=== PATIENT | female | born 1985 | race Two or more races ===

== ENCOUNTER 2020-09-24 16:53 | Emergency (ER) | payer MEDICAID, SELFPAY ==
[2020-09-24 17:26] VITALS: BP 118/76; PULSE 82; RESP 18; TEMP 36.3; O2SAT 98; BMI 34.7
[2020-09-24 20:00] VITALS: BP 102/57; PULSE 67; RESP 18; TEMP 36.6; O2SAT 99
--- NOTE | 2020-09-24 20:08 | ED.BACK ---
HPI - Back Pain/Injury General Chief Complaint: Abdominal Pain Stated Complaint: back pain Time Seen by Provider: 09/24/20 19:56 Source: patient Mode of arrival: ambulatory Limitations: no limitations History of Present Illness HPI Narrative: Patient with history of chronic low back pain noticed increased pain in the lower back for last 1 week no injury or trauma no urinary complaints no family history of kidney stones no fever or chills no nausea vomiting no bowel or bladder problems no focal weakness in the leg Related Data Previous Rx's Medication Instructions Recorded cyclobenzaprine 10 mg PO Q8H #20 tab 09/24/20 diclofenac sodium 50 mg PO BID #20 tab 09/24/20 Allergies Allergy/AdvReac Type Severity Reaction Status Date / Time No Known Allergies Allergy Verified 09/24/20 19:56 Review of Systems Review of Systems: Yes all other systems are reviewed and are negative FOR[facility]LY [facility] Social History Social History Advance Directives: No Advance Directives Information Provided: No Patient : No Physical Exam Vital Signs: Vital Signs: Last Vital Signs Temp 97.8 F 09/24/20 20:00 Pulse 67 09/24/20 20:00 Resp 18 09/24/20 20:00 BP 102/57 L 09/24/20 20:00 Pulse Ox 99 09/24/20 20:00 Body Mass Index 34.7 Const: General: healthy appearing and comfortable Orientation/consciousness: patient oriented x3 Eyes: General: appearance normal, both eyes and all related structures Resp: Effort & Inspection: normal respiratory effort Auscultation: clear to auscultation bilaterally Cardio: Palpation: normal PMI Rate: regular rate Rhythm: regular rhythm Heart sounds: S1 normal heart sound present and S2 normal heart sound present Peripheral pulses: Peripheral pulses 2+ throughout GI: Inspection: Yes normal to inspection Palpation (GI): Soft to palpation Auscultation: normal bowel sounds : General: Yes CVA tenderness (Left side) Back/Spine/Pelvis: Back: CVA tenderness (Left side) Thoracic/Lumbar Spine: thoracic and lumbar spine normal to inspection, straight leg raise negative bilaterally and paraspinal muscle tenderness (Left paraspinal) Neuro: General: patient oriented x3, moves all extremities and no focal motor deficits Extrem: General: Yes full ROM MDM - Back Pain/Injury Lab Data Labs: Lab Results 09/24/20 Range/Units 20:33 Urine Color YELLOW Urine Appearance CLEAR Urine pH 6.0 (5.0-8.0) Ur Specific [place] 1.025 (1.005-1.025) Urine Protein NEG (NEG-TRACE) MG/DL Urine Glucose (UA) NEG (NEG) MG/DL Urine Ketones NEG (NEG) MG/DL Urine Blood NEG (NEG) Urine Nitrite NEG (NEG) Ur Leukocyte Esterase NEG (NEG) Discharge Plan Discharge Clinical Impression: Strain of lumbar region Patient Disposition: Home, Self-Care Instructions: Back Pain (ED) Additional Instructions: Rest at home take pain Medication muscle relaxant as prescribed follow with PCP if not better Prescriptions: New cyclobenzaprine 10 mg tablet 10 mg PO Q8H Qty: 20 RF: 0 diclofenac sodium 50 mg tablet,delayed release (DR/EC) 50 mg PO BID Qty: 20 RF: 0 Interventions: ED Discharge Assessment Last Done: 09/24/20 21:54 Discharge Date/Time: 09/24/20 21:55
[2020-09-24 20:45] LABS: Glucose Urine UA NEG (NEG); Leukocyte Esterase Urine NEG (NEG); Nitrite Urine NEG (NEG); Specific Gravity - Urine 1.025 (1.005-1.025); Urine Blood NEG (NEG); Urine Ketones NEG (NEG); Urine Protein NEG (NEG-TRACE)
[2020-09-24 20:49] LABS: Appearance Urine CLEAR; Color Urine YELLOW
[2020-09-24] MEDS: Cyclobenzaprine HCl 10 MG TABLET PO (21:25)
[2020-09-24] MEDS: Lidocaine 4 % Patch ADH..PATCH 1 PATCH TRANSDERMA (21:25)
== END 2020-09-24 21:55 | disposition home or self-care (01) ==
PROVIDERS: Emergency Provider Internal Medicine
DX: S39.012A Strain of muscle, fascia and tendon of lower back, initial encounter (principal); X58.XXXA Exposure to other specified factors, initial encounter; Y93.9 Activity, unspecified; Y92.9 Unspecified place or not applicable; Y99.9 Unspecified external cause status
CPT/HCPCS: 81003; 99284

== ENCOUNTER 2021-01-03 18:54 | Emergency (ER) | payer OTHER, SELFPAY ==
--- NOTE | ~2021-01-03 | XR_ITS ---
EXAMINATION: PORTABLE CHEST 1 VIEW CLINICAL INFORMATION: COUGH . COMPARISON: No recent pertinent prior studies are available for comparison. TECHNIQUE: Portable frontal view of the chest was obtained. FINDINGS: The lungs are well expanded. No focal infiltrate, effusion, edema, or pneumothorax. Cardiac and mediastinal silhouettes are within normal limits for technique. No acute bony abnormality seen. XR/XR chest 1V IMPRESSION: No evidence of acute disease.
[2021-01-03 20:39] LABS: COVID-19 Test Negative (Negative); IDNOW Serial# 08D9AD1C
[2021-01-03 20:46] VITALS: BP 122/75; PULSE 115; RESP 16; TEMP 37.1; O2SAT 98; BMI 36.6
--- NOTE | 2021-01-03 21:30 | ED_ITS ---
HPI - URI/Sore Throat General Chief Complaint: Upper Respiratory Symptoms Stated Complaint: cough tightness in chest Time Seen by Provider: 01/03/21 21:30 Source: patient Mode of arrival: ambulatory Limitations: no limitations History of Present Illness HPI Narrative: patient with itchy eyes and cough that started 4 days ago. patient was concerned because she was wheezing. Her chest feels tight. MD elicited complaint: fever, cough and sore throat Onset (ago): day(s) Consistency: constant Severity: mild Associated symptoms: cough and chest pain Related Data Previous Rx's Medication Instructions Recorded cyclobenzaprine 10 mg tablet 10 mg PO Q8H #20 tab 09/24/20 diclofenac sodium 50 mg 50 mg PO BID #20 tab 09/24/20 tablet,delayed release fluticasone propionate 50 2 spray INTRANASAL DAILY #16 g 01/03/21 mcg/actuation nasal spray,suspension (Flonase Allergy Relief) Allergies Allergy/AdvReac Type Severity Reaction Status Date / Time No Known Allergies Allergy Verified 09/24/20 19:56 Review of Systems Constitutional: Constitutional: Reports no additional constitutional complaints Eyes: Eyes: Reports no additional eye complaints ENT: Denies dizziness Cardiovascular: Cardiovascular: Reports no additional cardiovascular complaints Respiratory: Respiratory: Reports as per HPI Gastrointestinal: Gastrointestinal: Reports no additional gastrointestinal complaints Genitourinary: Genitourinary: Reports no additional female genitourinary complaints Musculoskeletal: Musculoskeletal: Reports no additional musculoskeletal complaints Integumentary/Breasts: Skin/Breast: Denies rash Neurologic: Reports system reviewed and no additional complaints, except as documented, Denies dizziness and Denies Sensory deficit (Neuro) Psychiatric: Psychiatric: Denies anxiety FORMERLY [facility], [facility] Social History Social History Advance Directives: No Patient : No Physical Exam Vital Signs: Vital Signs: Last Vital Signs Temp 98.7 F 01/03/21 20:46 Pulse 115 H 01/03/21 20:46 Resp 16 01/03/21 20:46 BP 122/75 01/03/21 20:46 Pulse Ox 98 01/03/21 20:46 Body Mass Index 36.6 Const: General: healthy appearing Nutritional Appearance: average body habitus Orientation/consciousness: oriented to person and patient oriented x3 Limitations: no limitations HENMT: Head: Yes normal to inspection Ears: external ears normal General nose exam: Normal external nose present Mouth: Normal oral and palatal mucosa present and oropharynx normal Throat: Yes posterior oropharynx normal Eyes: General: appearance normal, both eyes and all related structures Neck: Other: supple Neck: Yes normal visual inspection Chest: Chest palpation & inspection: normal inspection of the chest Resp: Auscultation: clear to auscultation bilaterally Cardio: Jugular venous distension: no JVD Rate: regular rate Rhythm: regular rhythm Heart sounds: S1 normal heart sound present and S2 normal heart sound present GI: Inspection: Yes normal to inspection Palpation (GI): Soft to palpation, nontender and No hepatosplenomegaly present Auscultation: normal bowel sounds : General: Yes no CVA tenderness Back/Spine/Pelvis: Back: no CVA tenderness Skin: General skin exam: no rashes or lesions noted Neuro: General: oriented to person and patient oriented x3 Cranial nerves: Yes CN's II-XII intact bilaterally Motor exam (neuro): 5/5 motor strength present throughout Sensory Exam: No Sensory deficit (Neuro) Extrem: General: Yes normal to inspection Psych: Appearance: grossly normal Course Reevaluation(s) Reevaluation #1: Patient with URI, however she and her boyfriend both tested negative for COVID Time: 21:34 MDM - URI/Sore Throat Lab Data Labs: Lab Results 01/03/21 Range/Units 20:16 COVID-19 (ANNEL) Negative (Negative) COVID-19 Clin Com See Note Discharge Plan Discharge Clinical Impression: Upper respiratory infection Qualifiers: URI type: unspecified viral URI Qualified Code(s): J06.9 - Acute upper respiratory infection, unspecified Sinusitis Qualifiers: Sinusitis location: other Chronicity: acute Recurrence: non-recurrent Qualified Code(s): J01.80 - Other acute sinusitis Patient Disposition: Home, Self-Care Instructions: Upper Respiratory Infection (ED), Rhinosinusitis (ED) Prescriptions: New fluticasone propionate [Flonase Allergy Relief] 50 mcg/actuation spray,suspension 2 spray intranasal DAILY Qty: 16 RF: 0 No Action cyclobenzaprine 10 mg tablet 10 mg PO Q8H Qty: 20 RF: 0 diclofenac sodium 50 mg tablet,delayed release (DR/EC) 50 mg PO BID Qty: 20 RF: 0 Referrals: Physician,Unknown [Primary Care Provider] - 5 days
[2021-01-03 21:55] VITALS: BP 132/84; PULSE 78; RESP 18; TEMP 36.9; O2SAT 98
--- NOTE | 2021-01-03 21:57 | PC.NURSE ---
Pt alert and oriented x4, calm and cooperative. Pt educated on dc. No IV in place. Vitals stable. Pt states ready for dc.
== END 2021-01-03 21:57 | disposition home or self-care (01) ==
PROVIDERS: Emergency Provider Emergency Medicine
DX: J06.9 Acute upper respiratory infection, unspecified (principal); J01.80 Other acute sinusitis; R05 Cough; R50.9 Fever, unspecified; Z20.822 Contact with and (suspected) exposure to COVID-19; Z79.899 Other long term (current) drug therapy
CPT/HCPCS: 36415; 71045; 87635; 99283; 99285

== ENCOUNTER 2021-04-18 08:22 | Outpatient (REF) | payer OTHER, SELFPAY ==
[2021-04-18 09:05] LABS: Hematocrit 43.4 % (37.0-47.0); Mean Corpuscular HGB Conc 32.3 g/dl (31.0-35.0); Mean Corpuscular Hemoglobin 28.2 pg (27.0-33.0); Mean Corpuscular Volume 87.3 fL (80.0-98.0); Mean Platelet Volume 10.4 fL (9.4-12.3); Platelet Count 373 X10*3/uL (160-400); Red Blood Count 4.97 X10*6/uL (4.20-5.50); Red Cell Distribution Width 13.8 % (11.0-16.0); White Blood Count 7.1 X10*3/uL (4.8-10.8)
[2021-04-18 09:16] LABS: Estimated Average Glucose 120 mg/dL; Hemoglobin A1C 151.2364 umol/L; Hemoglobin A1c % 5.8 %
[2021-04-18 09:32] LABS: Alanine Aminotransferase 28 U/L (0-31); Albumin Level 4.5 g/dL (3.5-5.0); Alkaline Phosphatase 105 U/L (39-117); Anion Gap 11 (12-20); Aspartate Amino Transferase 17 U/L (5-31); Bilirubin Total 0.3 mg/dL (0.0-1.0); Blood Urea Nitrogen 14 mg/dL (9-16); Calcium 10.1 mg/dL (8.4-10.2); Carbon Dioxide 31 mmol/L (22-29); Chloride 102 mmol/L (96-108); Cholesterol 208 mg/dL; Estimated Glomerular Filt Rate > 60; Glucose Fasting 108 mg/dL (60-99); HDL Cholesterol 54 mg/dL; Iron 68 mcg/dL (30-160); LDL Cholesterol Calculated 140 mg/dl; Percent Iron Saturation 21 % (15-50); Potassium 4.1 mmol/L (3.3-5.1); Sodium 140 mmol/L (135-145); Total Iron Binding Capacity 325 mcg/dL (228-428); Total Protein 7.6 g/dL (6.5-8.0); Triglycerides 71 mg/dL; Unsaturated Iron Binding 257 ug/dL
[2021-04-18 09:55] LABS: TSH reflex Free T4 1.16 uIU/mL (0.32-4.0)
== END 2021-04-18 08:23 | disposition home or self-care (01) ==
LOC: HO.LAB 08:22
PROVIDERS: Visit Provider Physician Assistant
DX: D50.9 Iron deficiency anemia, unspecified (principal); I10 Essential (primary) hypertension; Z13.29 Encounter for screening for other suspected endocrine disorder; Z13.220 Encounter for screening for lipoid disorders; Z13.1 Encounter for screening for diabetes mellitus
CPT/HCPCS: 36415; 80053; 80061; 83036; 83540; 84443; 85027

== ENCOUNTER 2021-07-01 13:53 | Outpatient (REF) | payer OTHER, SELFPAY ==
--- NOTE | 2021-07-01 16:16 | MHC.AU.ANR ---
Adult Audiological Evaluation Date of Visit: 07/01/21 Virtual Office Assistant Used: Not Applicable Reason for Appointment: Yas was seen for a hearing evaluation due to concerns of decreased hearing in her left ear following a Covid diagnosis in July of 2020. She reports asking for increased repetitions when someone is speaking on her left side and phone conversations being clearer in the right ear than the left ear. She also reports frequent sinus pressure issues. Does patient feel they have a hearing loss?: Yes If Yes, Which Ear?: Left Ear When Was Hearing Difficulty First Noticed?: July 2020 Has hearing been tested previously?: Yes Previous Hearing Test Results: Results are unknown. Hearing Handicap Inventory: HHIE SCORE: 10 Based on HHIE score, patient has: Mild to moderate perceived hearing handicap Ear History: Bothersome Tinnitus/Ringing/Noises in Ears: None Reported Ear used on the phone: Right Ear Medical History: Medical History: Migraines Medication List: albuterol sulfate, cyclobenzaprine, diclofenac sodium, fluticasone propionate, montelukast Otoscopy: Right Ear: Unremarkable Left Ear: Unremarkable Tympanometry: Tympanometry performed due to: To assess integrity of the middle ear system Right Ear: Normal Middle Ear System (Type A) Left Ear: Reduced Middle Ear Compliance (Type As) Hearing Evaluation: Transducer(s) Used: Insert Earphones Method: Conventional Audiometry Stimuli Used: Pure Tones Right Ear: Description of Hearing: Normal hearing thresholds from 250-8000 Hz bilaterally. Left Ear: Description of Hearing: Normal hearing thresholds from 250-8000 Hz bilaterally. Speech Recognition Threshold (SRT): Method Used: Monitored Live Voice Stimuli Used: Spondee Words Right Ear: 10 dB HL Left Ear: 10 dB HL Word Discrimination: Method: Recorded Lists Word Lists Used: NU-6 Right Ear: 96% at 50 dB HL Left Ear: 96% at 50 dB HL Interpretation of Results: Normal hearing abilities from 250-8000 Hz. Normal middle ear compliance in the left ear and slightly reduced middle ear compliance in the right ear. Recommendations: No further audiological action is indicated at this time. Audiological re-evaluation if changes are noted. Yas should return if changes in hearing are noted in the future. Diagnosis: Primary Diagnosis: H93.293 Abnormal Auditory Perception Services Performed: Services Performed: Pure Tone- Air (CPT 93884) Speech Audiometry Threshold, with Speech Recognition (CPT 07870) Tympanometry (CPT 73307) Signature: Student/Clinical Fellow: Yes: Opal Schmid B.A., Rosanne Resin Shaver I have reviewed/agreed with student/fellow documentation: Yes Provider: Rosanne Foster, CCC-A
== END 2021-07-01 13:54 | disposition home or self-care (01) ==
LOC: HO.SH 13:53
PROVIDERS: Visit Provider Physician Assistant
DX: Z01.118 Encounter for examination of ears and hearing with other abnormal findings (principal); H93.293 Other abnormal auditory perceptions, bilateral
CPT/HCPCS: 92552; 92556; 92567

== ENCOUNTER → 2021-09-07 14:34 | Outpatient (REF) | payer OTHER, SELFPAY | LOC: HO.SL 14:34 | PROVIDERS: PCP Physician Assistant; Visit Provider Physician Assistant | DX: R06.81 Apnea, not elsewhere classified (principal) | CPT/HCPCS: 95806 ==

== ENCOUNTER 2021-12-01 14:23 | Emergency (ER) | payer OTHER, SELFPAY ==
--- NOTE | ~2021-12-01 | US_ITS ---
EXAMINATION: ULTRASOUND EXTREMITY NONVASCULAR. CLINICAL INFORMATION: Left inner thigh pain. Question abscess. COMPARISON: None TECHNIQUE: Limited ultrasound imaging of left upper inner thigh was performed FINDINGS: There is a solid well-defined echogenic lesion along the upper inner thigh in the subcutaneous soft tissues. It measures 4.2 x 3.9 x 1.7 cm. There appears to be smaller to drainage to the skin when compressed. This may represent a consolidated/organized abscess or old infected hematoma. There is mild surrounding edema. There is drainage when compressed directly by ultrasound probe. US/US extremity nonvascular IMPRESSION: Small echogenic lesion in the subcutaneous soft tissues in the area where patient complains of pain. This may be organized or consolidated abscess or an old infected hematoma. There is no cystic appearance to this lesion.
[2021-12-01 14:50] VITALS: BP 121/89; PULSE 81; RESP 18; TEMP 36.9; O2SAT 97; BMI 36.6
--- NOTE | 2021-12-01 19:39 | ED.SKABFB ---
HPI - Skin/Abscess/Foreign Bdy General Chief complaint: Skin/Abscess/Foreign Body Stated complaint: cyst on inner l thigh Time Seen by Provider: 12/01/21 18:12 Source: patient and family Mode of arrival: ambulatory Limitations: no limitations History of Present Illness HPI narrative: 36-year-old female presenting to the ED with complaints of pain/swelling and feeling warm to the right inner thigh she believes she might have an abscess. She reports this started approximately 2-3 days ago worse today. She denies any fevers, chills, history of MRSA, rashes or any other symptoms complaints or concerns at this time. complaint: abscess/boil Onset (ago): day(s) (2-3 days worse today) Location: LLE (Left upper inner thigh) Severity: mild Quality: aching Pain Consistency: constant Relieving factors: none Exacerbating factors: palpation Context: none Associated symptoms: denies other symptoms Treatments prior to arrival: none and attempted to drain pus at home Related Data Previous Rx's Medication Instructions Recorded albuterol sulfate 90 mcg/actuation 1 inh inhalation QID 30 days #8.5 03/24/21 aerosol inhaler (ProAir HFA) grams cyclobenzaprine 10 mg tablet 10 mg PO Q8H #20 tabs 06/07/21 diclofenac sodium 50 mg 50 mg PO BID #20 tabs 06/07/21 tablet,delayed release montelukast 10 mg tablet 10 mg PO DAILY #90 tabs 06/07/21 fluticasone propionate 50 2 spray intranasal DAILY #16 grams 09/06/21 mcg/actuation nasal spray,suspension (Flonase Allergy Relief) cephalexin 500 mg capsule 500 mg PO Q6H 10 days #40 caps 12/01/21 doxycycline hyclate 100 mg tablet 100 mg PO BID 10 days #20 tabs 12/01/21 Allergies Allergy/AdvReac Type Severity Reaction Status Date / Time No Known Allergies Allergy Verified 06/07/21 09:57 Review of Systems Review of Systems: Constitutional : Denies history of same, Denies any other sites involved, Denies IV drug use, Denies history of MRSA, Denies swollen glands, Denies injury, Denies Fever, Denies Chills, No Sig Pain, Denies Systemic symptoms Cardiovascular : No Chest Pain, No SOB Respiratory : No Dyspnea Gastrointestinal : No abdominal pain Musculoskeletal : No Joint Swelling Skin : + skin pain/swelling ? abscess, No surrounding erythema, No skin laceration, No Foreign bodies, No spreading rash, Denies bites, Denies discharge, Neuro : No Weakness, No Numbness/tingling Psych : No SI/HI/thoughts of self injury Yes all other systems are reviewed and are negative FORMERLY [facility] Past Medical History Attestation statement: The following information was validated with the patient. Source: old records reviewed, obtained from family and nursing notes reviewed Family History Family History Mother Uterine cancer Social History Social History Housing: House Alcohol intake: never Patient Tobacco Use Status: Never used Tobacco Tobacco use type: Cigarette e-Cigarette/Vaping Use: Never Used Advance Directives: No Advance Directives Information Provided: No Current occupational status: unemployed Physical Exam Vital Signs: Vital Signs: Last Vital Signs Temp 98.5 F 12/01/21 14:50 Pulse 81 12/01/21 14:50 Resp 18 12/01/21 14:50 BP 121/89 12/01/21 14:50 Pulse Ox 97 12/01/21 14:50 O2 Del Method 12/01/21 14:50 BMI result Body Mass Index 36.6 vital signs have been reviewed as normal and appeared to be correct. Blood pressure normal Heart rate normal. Respiration rate normal. Temperature normal. Oxygen saturation normal. Appearance: Alert. Oriented X3. No acute distress. Head: Normal external exam. Normocephalic. Atraumatic. Eyes: PERRLA. EOMI. Conjunctiva and sclera normal. Eyelids normal. ENT: Pharynx normal. Uvula midline. Moist mucous membranes. Neck: Normal inspection. Neck supple. FROM. CVS: Normal heart rate and rhythm. Respiratory: No respiratory distress. Painless inspiration. Skin: Skin warm and dry. Normal skin color. Normal skin turgor. Patient mild tenderness to palpation and induration to left inner thigh. Feels warm to the touch. Although no fluctuance/streaking or foreign bodies noted. Otherwise no additional rashes/lesions/lacerations noted. Extremities: Extremities exhibit normal range of motion. Extremities nontender. Neuro: Oriented X 3. No motor deficit. No sensory deficit. Reflexes normal. Normal steady gait. No focal neuro deficits noted. Vascular: + radial pulses/+ 2 distal pedal pulses/+2 dorsalis pedis b/l. Normal cap refill. No cyanosis noted to upper extremity nails and lower extremity toes nails. Course Course Course Narrative: 18:20pm - 36-year-old female presenting to the ED with complaints of pain/swelling and feeling warm to the right inner thigh she believes she might have an abscess. She reports this started approximately 2-3 days ago worse today. Will obtain a ultrasound of soft tissue to evaluate for possible abscess and re-evaluate. Reevaluation(s) Reevaluation #1: Ultrasound revealed possible small old infected hematoma versus abscess. I explained to the patient mid that I would want to perform a needle aspiration although patient refusing. Reports that she would rather perform warm compresses and be started on antibiotics before we put girl with a needle and she can follow up with her primary care provider as an outpatient. I explained to her that she should apply warm compresses if she does not want me to perform a needle aspiration and to return if any new or worsening symptoms. She understands agrees with this plan. Time: 20:50 MDM - Skin/Abscess/Foreign Bdy Medical Records Attestation: I reviewed the patient's medical records. Imaging Data Soft tissue ultrasound of left extremity: Attestation: I personally reviewed and interpreted this imaging study as follows: Radiologist's impression: FINDINGS: There is a solid well-defined echogenic lesion along the upper inner thigh in the subcutaneous soft tissues. It measures 4.2 x 3.9 x 1.7 cm. There appears to be smaller to drainage to the skin when compressed. This may represent a consolidated/organized abscess or old infected hematoma. There is mild surrounding edema. There is drainage when compressed directly by ultrasound probe.? US/US extremity nonvascular IMPRESSION: Small echogenic lesion in the subcutaneous soft tissues in the area where patient complains of pain. This may be organized or consolidated abscess or an old infected hematoma. There is no cystic appearance to this lesion. Discharge Plan Discharge Clinical Impression: Hematoma Patient Disposition: Home, Self-Care Instructions: Abscess (ED), Hematoma (ED), Warm Compress or Soak (ED) Prescriptions: New cephalexin 500 mg capsule 500 mg PO Q6H 10 Days Qty: 40 0RF doxycycline hyclate 100 mg tablet 100 mg PO BID 10 Days Qty: 20 0RF No Action albuterol sulfate [ProAir HFA] 90 mcg/actuation HFA aerosol inhaler 1 inh inhalation QID 30 Days Qty: 8.5 3RF fluticasone propionate [Flonase Allergy Relief] 50 mcg/actuation spray,suspension 2 spray intranasal DAILY Qty: 16 3RF Rx Instructions: administer into each nostril diclofenac sodium 50 mg tablet,delayed release (DR/EC) 50 mg PO BID Qty: 20 0RF cyclobenzaprine 10 mg tablet 10 mg PO Q8H Qty: 20 0RF montelukast 10 mg tablet 10 mg PO DAILY Qty: 90 1RF Referrals: Ganesh Gallegos PA-C [Primary Care Provider] - 2 days Print Language: Nigerien
== END 2021-12-01 21:13 | disposition home or self-care (01) ==
PROVIDERS: Emergency Provider Emergency Medicine; PCP Physician Assistant
DX: M79.81 Nontraumatic hematoma of soft tissue (principal); M79.652 Pain in left thigh
CPT/HCPCS: 76882; 99282; 99284

== ENCOUNTER 2021-12-07 07:47 | Outpatient (REF) | payer OTHER, SELFPAY ==
[2021-12-07 08:18] LABS: Hematocrit 40.8 % (37.0-47.0); Hemoglobin 13.4 g/dl (12.0-16.0); Mean Corpuscular HGB Conc 32.8 g/dl (31.0-35.0); Mean Corpuscular Hemoglobin 28.8 pg (27.0-33.0); Mean Corpuscular Volume 87.7 fL (80.0-98.0); Mean Platelet Volume 10.3 fL (9.4-12.3); Platelet Count 321 X10*3/uL (160-400); Red Blood Count 4.65 X10*6/uL (4.20-5.50); Red Cell Distribution Width 13.7 % (11.0-16.0); White Blood Count 6.4 X10*3/uL (4.8-10.8)
[2021-12-07 09:07] LABS: Alanine Aminotransferase 18 U/L (0-31); Albumin Level 4.3 g/dL (3.5-5.0); Alkaline Phosphatase 90 U/L (39-117); Anion Gap 15 (12-20); Aspartate Amino Transferase 16 U/L (5-31); Bilirubin Total < 0.2 mg/dL (0.0-1.0); Blood Urea Nitrogen 18 mg/dL (9-16); Calcium 9.3 mg/dL (8.4-10.2); Carbon Dioxide 23 mmol/L (22-29); Chloride 105 mmol/L (96-108); Cholesterol 202 mg/dL; Estimated Glomerular Filt Rate > 60; Glucose Fasting 109 mg/dL (60-99); HDL Cholesterol 50 mg/dL; LDL Cholesterol Calculated 135 mg/dl; Potassium 4.3 mmol/L (3.3-5.1); Sodium 139 mmol/L (135-145); Total Protein 6.9 g/dL (6.5-8.0); Triglycerides 85 mg/dL
[2021-12-07 09:21] LABS: TSH reflex Free T4 0.96 uIU/mL (0.32-4.0)
== END 2021-12-07 07:48 | disposition home or self-care (01) ==
LOC: HO.LAB 07:47
PROVIDERS: PCP Physician Assistant; Visit Provider Physician Assistant
DX: E78.9 Disorder of lipoprotein metabolism, unspecified (principal)
CPT/HCPCS: 36415; 80053; 80061; 84443; 85027

== ENCOUNTER 2021-12-22 10:55 | Outpatient (REF) | payer OTHER, SELFPAY ==
[2021-12-22 11:31] LABS: Hematocrit 42.7 % (37.0-47.0); Mean Corpuscular HGB Conc 32.8 g/dl (31.0-35.0); Mean Corpuscular Hemoglobin 28.3 pg (27.0-33.0); Mean Corpuscular Volume 86.4 fL (80.0-98.0); Mean Platelet Volume 10.4 fL (9.4-12.3); Platelet Count 338 X10*3/uL (160-400); Red Blood Count 4.94 X10*6/uL (4.20-5.50); Red Cell Distribution Width 13.7 % (11.0-16.0); White Blood Count 5.9 X10*3/uL (4.8-10.8)
[2021-12-22 11:46] LABS: Estimated Average Glucose 117 mg/dL; Hemoglobin A1c % 5.7 %
[2021-12-22 12:06] LABS: Alanine Aminotransferase 19 U/L (0-31); Albumin Level 4.5 g/dL (3.5-5.0); Alkaline Phosphatase 101 U/L (39-117); Anion Gap 13 (12-20); Aspartate Amino Transferase 15 U/L (5-31); Bilirubin Total 0.3 mg/dL (0.0-1.0); Blood Urea Nitrogen 13 mg/dL (9-16); Calcium 9.5 mg/dL (8.4-10.2); Carbon Dioxide 26 mmol/L (22-29); Chloride 104 mmol/L (96-108); Cholesterol 210 mg/dL; Estimated Glomerular Filt Rate > 60; Glucose Fasting 103 mg/dL (60-99); HDL Cholesterol 53 mg/dL; LDL Cholesterol Calculated 145 mg/dl; Potassium 4.2 mmol/L (3.3-5.1); Sodium 139 mmol/L (135-145); Total Protein 7.2 g/dL (6.5-8.0); Triglycerides 62 mg/dL
[2021-12-22 12:17] LABS: TSH reflex Free T4 0.62 uIU/mL (0.32-4.0)
[2021-12-22 12:20] LABS: HBc Num1 0.06 S/CO (0.00-0.79); HIV AB/AG Nonreactive (Nonreactive); HIV Num 1 0.06 S/CO (0.00-0.99); Hepatitis B Core Antibody Nonreactive (Nonreactive); ~HepC Num1 0.07 S/CO (0.00-0.79); ~Hepatitis C Antibody Nonreactive (Nonreactive)
[2021-12-22 16:06] LABS: CT PCR NOT DETECTED (Not Detect.); NG PCR NOT DETECTED (Not Detect.)
[2021-12-23 08:18] LABS: Syphilis Screen Nonreactive (Nonreactive)
[2021-12-23 13:00] LABS: BV Int Neg Control Negative (Negative); BV Int Pos Control Positive (Positive)
[2021-12-27 15:21] LABS: HPV 16 RNA NOT DETECTED (NOT DETECTED); HPV mRNA E6/E7 rflx Detected (Not Detected)
== END 2021-12-22 10:56 | disposition home or self-care (01) ==
LOC: HO.LNP 10:55
PROVIDERS: Physician Assistant; Visit Provider Advanced Practice Midwife
DX: Z01.419 Encounter for gynecological examination (general) (routine) without abnormal findings (principal); R73.09 Other abnormal glucose; E78.9 Disorder of lipoprotein metabolism, unspecified; Z20.2 Contact with and (suspected) exposure to infections with a predominantly sexual mode of transmission
CPT/HCPCS: 80053; 80061; 83036; 84443; 85027; 86704; 86780; 86803; 87389; 87480; 87491; 87510; 87591; 87624; 87625; 87660; 88142

== ENCOUNTER 2022-01-04 15:16 | Outpatient (REF) | payer OTHER, SELFPAY ==
[2022-01-04 15:42] LABS: Binax Internal Control QC Valid; Binax Now Covid-19 Ag Negative (Negative)
== END 2022-01-04 15:17 | disposition home or self-care (01) ==
LOC: HO.HMGCLDS 15:16
PROVIDERS: PCP Physician Assistant; Visit Provider Emergency Medicine
DX: Z20.822 Contact with and (suspected) exposure to COVID-19 (principal); J06.9 Acute upper respiratory infection, unspecified
CPT/HCPCS: 87811; C9803

== ENCOUNTER 2022-02-02 12:06 | Outpatient (REF) | payer OTHER, SELFPAY | END 2022-02-02 12:07 | disposition home or self-care (01) | LOC: HO.LNP 12:06 | PROVIDERS: PCP Physician Assistant; Visit Provider Obstetrics & Gynecology | DX: R87.610 Atypical squamous cells of undetermined significance on cytologic smear of cervix (ASC-US) (principal); R87.810 Cervical high risk human papillomavirus (HPV) DNA test positive | CPT/HCPCS: 57454; 88305 ==

== ENCOUNTER → 2022-02-21 13:47 | Outpatient (BNVA) | payer OTHER, SELFPAY | PROVIDERS: PCP Physician Assistant; Visit Provider Obstetrics & Gynecology | DX: N87.0 Mild cervical dysplasia (principal) | CPT/HCPCS: 99212 ==